=== PATIENT | female | born 1955 | race Two or more races ===

== ENCOUNTER → 2025-02-03 | Outpatient (CLI) | payer MEDICAID, SELFPAY ==
--- NOTE | 2025-02-03 13:40 | XR_ITS ---
Examination: Bone densitometry Date and time of exam: February 03, 2025, 1416 hours INDICATIONS: Menopause age 51 postmenopausal knee fracture Technique: Lumbar spine and hip total bone mineralization values of an calculated. Peak reference and age match control results have been displayed. Findings: Lumbar spine total bone mineralization is 0.769 gm/cm2. This is 2.5 standard deviations 2 below peak reference. This is 0.5 standard deviations below age-matched controls. Hip total bone mineralization is 0.857 gm/cm2 This is 0.8 standard deviations below peak reference. This is 0.6 standard deviations above age-matched controls Impression: There is osteoporosis based on lumbar spine measurements. There is osteopenia based on hip measurements
== END | disposition home or self-care (01) ==
LOC: CDIM 13:16
PROVIDERS: Referring Provider Family Medicine; Visit Provider Family Medicine
DX: Z13.820 Encounter for screening for osteoporosis (principal); M81.0 Age-related osteoporosis without current pathological fracture; M85.88 Other specified disorders of bone density and structure, other site
CPT/HCPCS: 77080